=== PATIENT | male | born 2000 | race African-American/Black ===

== ENCOUNTER 2023-04-30 10:57 | Emergency (ER) | payer OTHER ==
--- OUTSIDE RECORDS SUMMARY | 2023-04-30 10:59 | XMS REPORT | Continuity of Care Document ---
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 [facility] laceration laceration - it y of , grade , grade 00:00: [place] IV, with IV, with 00 Medica l open wound open wound Br anch into into cavity cavity 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 U nivers g trauma g trauma 1-13 ity of 00:00: [place] 00 Medical Branch Allergies, Adverse Reactions, Alerts Allergy Allergy Status Severity Reaction(s) Onset Inactive Treating Comm ents Source Name Type Date Date Clinician NO KNOWN Drug Active Univers ALLERGIE Class ity of S [facility] Social History Social Habit Start Date Stop Date Quantity Comments Source Sex Assigned At [facility] Medical Branch Alcohol intake 2019-08-21 2019-08-21 [facility] Medical Branch Smoking Status Start Date Stop Date Source Never smoker [facility] Medications Ordered Filled Start Stop Current Ordering Indication Dosage Frequency Signature Comments Components Source Medication Medication Date Date Medication? Clinician (SIG) Name Name celecoxib 2020-0 2020- No 100mg Take 1 Univ ers (CELEBREX) 09-05 capsule by it y of 100 mg 00:00: 05:59 mouth 2 [place] capsule 00 :00 (two) Medical times Branch daily with meals for 30 days. Fluticasone 2019-0 Yes 1{puff} Inhale 1 Univers -Salmeterol -13 Puff every it y of (ADVAIR 22:13: 12 [place] DISKUS) 39 (twelve) Medical 100-50 hours. Branch mcg/dose inhalation disk ALBUTEROL 2020-0 Yes Inhale as Uni vers INHALE 1-13 needed. ity of 22:13: [place] [address] Medical Branch albuterol 2020-0 Yes 2{puff} Inhale 2 U nivers 90 1-13 Puffs ity of mcg/actuati 22:13: every 4 Eder as on inhaler 39 (four) Medical hours as Branch needed for Wheezing or Shortness of Breath. Fluticasone 2020-0 Yes 1{puff} Inhale 1 Univers -Salmeterol 1-13 Puff every it y of (ADVAIR 22:13: 12 [place] DISKUS) 39 (twelve) Medical 100-50 hours. Branch mcg/dose inhalation disk ALBUTEROL 2020-0 Yes Inhale as Uni vers INHALE 1-13 needed. ity of 22:13: [place] [address] Medical Branch albuterol 2020-0 Yes 2{puff} Inhale 2 U nivers 90 1-13 Puffs ity of mcg/actuati 22:13: every 4 Eder as on inhaler 39 (four) Medical hours as Branch needed for Wheezing or Shortness of Breath. Fluticasone 2020-0 Yes 1{puff} Inhale 1 Univers -Salmeterol 1-13 Puff every it y of (ADVAIR 22:13: 12 [place] DISKUS) 39 (twelve) Medical 100-50 hours. Branch mcg/dose inhalation disk ALBUTEROL 2020-0 Yes Inhale as Uni vers INHALE 1-13 needed. ity of 22:13: [place] [address] Medical Branch albuterol 2020-0 Yes 2{puff} Inhale 2 U nivers 90 1-13 Puffs ity of mcg/actuati 22:13: every 4 Eder as on inhaler 39 (four) Medical hours as Branch needed for Wheezing or Shortness of Breath. Fluticasone 2020-0 Yes 1{puff} Inhale 1 Univers -Salmeterol 1-13 Puff every it y of (ADVAIR 22:13: 12 [place] DISKUS) 39 (twelve) Medical 100-50 hours. Branch mcg/dose inhalation disk ALBUTEROL 2020-0 Yes Inhale as Uni vers INHALE 1-13 needed. ity of 22:13: [place] [address] Medical Branch albuterol 2020-0 Yes 2{puff} Inhale 2 U nivers 90 1-13 Puffs ity of mcg/actuati 22:13: every 4 Eder as on inhaler 39 (four) Medical hours as Branch needed for Wheezing or Shortness of Breath. diclofenac 2020-0 Yes [id number] 75mg Take 1 Univers 75 mg EC 1-13 9104 tablet by ity of tablet 00:00: mouth 2 (two) Medical times Branch daily with meals. diclofenac 2020-0 Yes [id number] 75mg Take 1 Univers 75 mg EC 1-13 9104 tablet by ity of tablet 00:00: mouth 2 (two) Medical times Branch daily with meals. diclofenac 2020-0 Yes [id number] 75mg Take 1 Univers 75 mg EC 1-13 9104 tablet by ity of tablet 00:00: mouth 2 (two) Medical times Branch daily with meals. diclofenac 2020-0 Yes [id number] 75mg Take 1 Univers 75 mg EC 1-13 9104 tablet by ity of tablet 00:00: mouth 2 (two) Medical times Branch daily with meals. methylPREDN 2018-0 Yes 84mg Take 21 Uni vers ISolone 1-04 tablets by ity of (MEDROL, 00:00: mouth [place] ARCENIO,) 4 mg 00 SEE-INSTRU Med ical tablets CTIONS. Branch follow package directions methylPREDN 2018-0 Yes 84mg Take 21 Uni vers ISolone 1-04 tablets by ity of (MEDROL, 00:00: mouth [place] ARCENIO,) 4 mg 00 SEE-INSTRU Med ical tablets CTIONS. Branch follow package directions methylPREDN 2018-0 Yes 84mg Take 21 Uni vers ISolone 1-04 tablets by ity of (MEDROL, 00:00: mouth [place] ARCENIO,) 4 mg 00 SEE-INSTRU Med ical tablets CTIONS. Branch follow package directions methylPREDN 2018-0 Yes 84mg Take 21 Uni vers ISolone 1-04 tablets by ity of (MEDROL, 00:00: mouth [place] ARCENIO,) 4 mg 00 SEE-INSTRU Med ical tablets CTIONS. Branch follow package directions ADDERALL XR 2017- Yes Univer s 20 mg 24 hr 0-17 ity of capsule 00:00: 00 Medical Branch ADDERALL XR 2017- Yes Univer s 20 mg 24 hr 0-17 ity of capsule 00:00: [place] [facility] ADDERALL XR 2016- Yes Univer s 20 mg 24 hr 0-17 ity of capsule 00:00: [place] [facility] ADDERALL XR 2016- Yes Univer s 20 mg 24 hr 0-17 ity of capsule 00:00: [address] Vital Signs Vital Name Observation Time Observation Value Comments Source Systolic blood 2019-08-21 22:14:00 108 mm[Hg] Univer sity of pressure [facility] Diastolic blood 2019-08-21 22:14:00 63 mm[Hg] Unive rsity of [facility] Heart rate 2019-08-21 22:14:00 79 /min [facility] Respiratory rate 2019-08-21 22:14:00 19 /min Univ ersity [facility] Body weight 2019-08-21 22:14:00 70.534 kg [facility] Procedures This patient has no known procedures. Encounters Start End Encounter Admission Attending Care Care Encounter Source Date/Time Date/Time Type Type Clinicians Facility Department ID 2021-03-10 2021-03-10 Outpatient R [facility] [id number] Univers 17:00:00 17:00:00 ity of [facility] 2019-09-04 2019-09-04 Telephone [facility] [id number] Univers 00:00:00 00:00:00 Wilmer Waddell Personal Estate Manager [id number] it y of Surgical [id number] Eder as Specialti [id number] Wy dicwy es [address] [facility] 2019-08-29 2019-08-29 Telephone [facility] [id number] Univers 00:00:00 00:00:00 Wilmer Waddell Personal Estate Manager [id number] it y of Surgical [id number] Eder as Specialti [phone] Wy dical es 198 [facility] 2019-08-21 2019-08-21 Office [facility] [id number] Univers 16:08:51 16:28:58 Visit Wilmer Morales [id number] it y of Surgical [id number] Eder as Specialti [phone] Wy dical es 198 Branch [place] Results This patient has no known results.
--- NOTE | 2023-04-30 12:29 | RAD REPORT ---
EXAM DESCRIPTION: RAD - Ankle Left 3 View - 04/30/2023 12:17 pm CLINICAL HISTORY: PAIN COMPARISON: No comparisons FINDINGS/IMPRESSION: No acute fracture. No malalignment. No significant focal degenerative changes.
--- NOTE | 2023-04-30 12:33 | ER ---
Nurse's Notes [facility] Name: Cam Moya Age: 22 yrs Sex: Male : 2000 Arrival Date: 04/30/2023 Time: 10:57 Bed 13 Private MD: Diagnosis: Sprain of ankle Presentation: 04/30 11:21 Chief complaint: Patient states: Rolled left ankle last night playing basketball, heard jl7 and pop, unable to bear weight. Coronavirus screen: At this time, the client does not indicate any symptoms associated with coronavirus-19. Ebola Screen: No symptoms or risks identified at this time. Initial Sepsis Screen: Does the patient meet any 2 criteria? No. Patient's initial sepsis screen is negative. Does the patient have a suspected source of infection? No. Patient's initial sepsis screen is negative. Risk Assessment: Do you want to hurt yourself or someone else? Patient reports no desire to harm self or others. Onset of symptoms was April 29, 2023. 11:21 Method Of Arrival: Wheelchair jl7 11:21 Acuity: ZAC 4 jl7 Triage Assessment: 11:23 General: Appears in no apparent distress. uncomfortable, Behavior is calm, cooperative, jl7 appropriate for age. Pain: Complains of pain in left leg and left lateral ankle. Musculoskeletal: Swelling absent. Historical: - Allergies: 11:23 No Known Allergies; jl7 - Home Meds: 11:23 None [Active]; jl7 - PMHx: 11:23 None; jl7 - PSHx: 11:23 None; jl7 - Immunization history:: Immunization history: Adult Immunizations unknown. - Social history:: Smoking status: Patient reports the use of cigarette tobacco products. Screenin:58 Abuse screen: Denies threats or abuse. Nutritional screening: No deficits noted. ap3 Tuberculosis screening: No symptoms or risk factors identified. 12:59 [facility] ED Fall Risk Assessment (Adult) History of falling in the last 3 months, ap3 including since admission No falls in past 3 months (0 pts). Assessment: 12:57 General: Appears in no apparent distress. Behavior is calm, cooperative, appropriate ap3 for age. Pain: Complains of pain in left lateral ankle. Neuro: Level of Consciousness is awake, alert, obeys commands, Oriented to person, place, time, situation. Cardiovascular: Patient's skin is warm and dry. Respiratory: Airway is patent Respiratory effort is even, unlabored, Respiratory pattern is regular, symmetrical. Vital Signs: 11:21 BP 112 / 77; Pulse 57; Resp 15; Temp 98.3; Pulse Ox 100% ; Weight 70.76 kg; Height 5 jl7 ft. 10 in. ; 11:21 Body Mass Index 22.38 (70.76 kg, 177.8 cm) jl7 ED Course: 10:59 Patient arrived in ED. rg4 11:03 [facility]C [facility] snw 11:03 Jake Lockhart MD is Attending Physician. snw 11:21 Robert Arrington, JOANA is Primary Nurse. jl7 11:23 Triage completed. jl7 11:24 Arm band placed on right wrist. jl7 12:19 Ankle Left 3 View XRAY In Process Unspecified. EDMS 12:58 Patient has correct armband on for positive identification. Bed in low position. Call ap3 light in reach. Side rails up X 1. Adult w/ patient. Provided Education on: discharge education. 12:58 No provider procedures requiring assistance completed. Patient did not have IV access ap3 during this emergency room visit. Administered Medications: 12:53 Drug: HYDROcodone-acetaminophen PO 5 mg-325 mg 1 tabs PO once Route: PO; ap3 12:59 Follow up: Response: Pain is decreased ap3 Medication: 12:58 VIS not applicable for this client. ap3 Outcome: 12:32 Discharge ordered by MD. snw 12:59 Discharged to home ambulatory, with crutches, ap3 12:59 Condition: good 12:59 Discharge instructions given to patient, family, Instructed on discharge instructions, follow up and referral plans. medication usage, crutch walking, Demonstrated understanding of instructions, follow-up care, medications, crutch walking, Prescriptions given X 2, 12:59 Patient left the ED. ap3 Signatures: Dispatcher [employer] EDMS Erma Gonzales FNP-C SMALL WIND ENERGY INSTALLER-Csnw Hanna Saenz rg4 Robert Arrington, RN RN jl7 Courtney Lugo RN RN ap3 Corrections: (The following items were deleted from the chart) 11:24 11:23 Allergies: Aspirin; jl7 jl7 11:25 11:21 Chief complaint: Patient states: Rolled right ankle last night playing jl7 basketball, heard and pop, unable to bear weight jl7
--- NOTE | 2023-04-30 12:33 | EDPHYS ---
Physician Documentation [facility] Name: Cam Moya Age: 22 yrs Sex: Male : 2000 Arrival Date: 04/30/2023 Time: 10:57 Bed 13 Private MD: ED Physician Jake Lockhart HPI: 04/30 11:22 This 22 yrs old Black Male presents to ER via Unassigned with complaints of Ankle snw Injury. 11:22 The patient presents with decreased range of motion, pain, tenderness. The complaints snw affect the left ankle. Onset: The symptoms/episode began/occurred suddenly, last night. Context: The problem was sustained at a sports field or court, resulted from a mis-step by the patient, another player, The mechanism of injury involved inversion of the affected ankle. The patient can partially bear weight on the affected extremity. must have assistance. Severity of symptoms: At their worst the symptoms were moderate. The patient has not experienced similar symptoms in the past. The patient has not recently seen a physician. up to date on tetanus. Historical: - Allergies: 11:23 No Known Allergies; jl7 - Home Meds: 11:23 None [Active]; jl7 - PMHx: 11:23 None; jl7 - PSHx: 11:23 None; jl7 - Immunization history:: Immunization history: Adult Immunizations unknown. - Social history:: Smoking status: Patient reports the use of cigarette tobacco products. ROS: 11:22 Constitutional: Negative for fever, chills, and weight loss, Eyes: Negative for injury, snw pain, redness, and discharge, ENT: Negative for injury, pain, and discharge, Neck: Negative for injury, pain, and swelling, Cardiovascular: Negative for chest pain, palpitations, and edema, Respiratory: Negative for shortness of breath, cough, wheezing, and pleuritic chest pain, Abdomen/GI: Negative for abdominal pain, nausea, vomiting, diarrhea, and constipation, Back: Negative for injury and pain, : Negative for injury, bleeding, discharge, and swelling, Skin: Negative for injury, rash, and discoloration, Neuro: Negative for headache, weakness, numbness, tingling, and seizure, Psych: Negative for depression, anxiety, suicide ideation, homicidal ideation, and hallucinations, 11:22 MS/extremity: Positive for injury or acute deformity, decreased range of motion, pain, swelling, tenderness, of the left lateral ankle, Exam: 11:21 Constitutional: This is a well developed, well nourished patient who is awake, alert, snw and in no acute distress. Head/Face: Normocephalic, atraumatic. Eyes: Pupils equal round and reactive to light, extra-ocular motions intact. Lids and lashes normal. Conjunctiva and sclera are non-icteric and not injected. Cornea within normal limits. Periorbital areas with no swelling, redness, or edema. ENT: Nares patent. No nasal discharge, no septal abnormalities noted. Tympanic membranes are normal and external auditory canals are clear. Oropharynx with no redness, swelling, or masses, exudates, or evidence of obstruction, uvula midline. Mucous membranes moist. Neck: Trachea midline, no thyromegaly or masses palpated, and no cervical lymphadenopathy. Supple, full range of motion without nuchal rigidity, or vertebral point tenderness. No Meningismus. Chest/axilla: Normal chest wall appearance and motion. Nontender with no deformity. No lesions are appreciated. Respiratory: Lungs have equal breath sounds bilaterally, clear to auscultation and percussion. No rales, rhonchi or wheezes noted. No increased work of breathing, no retractions or nasal flaring. Abdomen/GI: Soft, non-tender, with normal bowel sounds. No distension or tympany. No guarding or rebound. No evidence of tenderness throughout. Back: No spinal tenderness. No costovertebral tenderness. Full range of motion. 11:21 Skin: Warm, dry with normal turgor. Normal color with no rashes, no lesions, and no evidence of cellulitis. Neuro: Awake and alert, GCS 15, oriented to person, place, time, and situation. Cranial nerves II-XII grossly intact. Motor strength 5/5 in all extremities. Sensory grossly intact. Cerebellar exam normal. Normal gait. Psych: Awake, alert, with orientation to person, place and time. Behavior, mood, and affect are within normal limits. 11:21 Cardiovascular: Rate: bradycardic, Heart sounds: normal, 11:21 Musculoskeletal/extremity: Extremities: grossly normal except: noted in the left lateral ankle: decreased ROM, tenderness, ROM: limited active range of motion due to pain, limited passive range of motion due to pain, in the left lateral ankle, Circulation is intact in all extremities. Sensation intact. Vital Signs: 11:21 BP 112 / 77; Pulse 57; Resp 15; Temp 98.3; Pulse Ox 100% ; Weight 70.76 kg; Height 5 jl7 ft. 10 in. ; 11:21 Body Mass Index 22.38 (70.76 kg, 177.8 cm) jl7 MDM: 11:11 Patient medically screened. snw 12:33 Differential diagnosis: fracture, sprain, arthritis. Data reviewed: vital signs, nurses snw notes. I considered the following discharge prescriptions or medication management in the emergency department Medications were administered in the Emergency Department. See MAR. Independent interpretation of the following test(s) in the Emergency Department X-Ray: My interpretation is no noted fx. Counseling: I had a detailed discussion with the patient and/or guardian regarding the historical points, exam findings, and any diagnostic results supporting the discharge/admit diagnosis, radiology results, the need for outpatient follow up, to return to the emergency department if symptoms worsen or persist or if there are any questions or concerns that arise at home. Special discussion: Based on the history and exam findings, there is no indication for further emergent testing or inpatient evaluation. I discussed with the patient/guardian the need to see the orthopedic surgeon for further evaluation of the symptoms. I discussed with the patient/guardian the need to see the primary care provider for further evaluation of the symptoms. 04/30 11:21 Order name: Ankle Left 3 View XRAY; Complete Time: 12:33 snw 04/30 12:11 Order name: Walking boot; Complete Time: 12:42 snw 04/30 12:34 Order name: Crutches: 5'10''; Complete Time: 12:42 snw Administered Medications: 12:53 Drug: HYDROcodone-acetaminophen PO 5 mg-325 mg 1 tabs PO once Route: PO; ap3 12:59 Follow up: Response: Pain is decreased ap3 Disposition: 13:55 Co-signature as Attending Physician, Jake Lockhart MD I reviewed the patient's care rn provided by the Advanced Practice Provider and agree with the diagnosis and treatment plan. Disposition Summary: 04/30/23 12:32 Discharge Ordered Notes: Location: Home snw Condition: Stable snw Diagnosis - Sprain of ankle snw Followup: snw - With: Emergency Department - When: As needed - Reason: Worsening of condition Followup: snw - With: Private Physician - When: 2 - 3 days - Reason: Recheck today's complaints, Continuance of care, Re-evaluation by your physician Discharge Instructions: - Discharge Summary Sheet snw - Ankle Sprain snw - Crutch Use, Adult snw - RICE Therapy for Routine Care of Injuries snw - Walking Boot, Adult snw Forms: - Medication Reconciliation Form snw - Thank You Letter snw - Antibiotic Education snw - Prescription Opioid Use snw - Patient Portal Instructions snw - Leadership Thank You Letter snw - Work release form ap3 Prescriptions: - Mobic 7.5 mg Oral Tablet - take 1 tablet ORAL route once daily take with food; 20 tablet; Refills: 0, snw Product Selection Permitted - orphenadrine citrate 100 mg Oral Tablet Sustained Release - take 1 tablet ORAL route 2 times per day As needed; 20 tablet; Refills: 0, snw Product Selection Permitted Signatures: Dispatcher [employer] EDErma Joshua, CLAY SHOP SUPERVISOR-C CLAY SHOP SUPERVISOR-Csnw Jake Lockhart MD MD rn Leal, Jahala, RN RN jl7 Courtney Lugo RN RN ap3 Corrections: (The following items were deleted from the chart) 11:24 11:23 Allergies: Aspirin; osiel jl7
[2023-04-30] MEDS ORDERED: HYDROCODONE/APAP 5/325 MG TAB ONE (12:59)
[2023-04-30 13:09] VITALS: BP 112/77; TEMP 98.3; O2SAT 100
== END 2023-04-30 12:59 | disposition home or self-care (01) ==
LOC: ER 10:57
DX: S93.402A Sprain of unspecified ligament of left ankle, initial encounter (principal)
CPT/HCPCS: 99283